=== PATIENT | male | born 1990 | race Caucasian/White ===

== ENCOUNTER → 2018-06-05 | Outpatient (REF) | payer BC ==
[~2018-06-05] MED LIST: ACET500T68 PO; DOXY-179 PO; HYDR-653 PO; IBUP800T37 PO; LAMO100T56 PO; LITH300T18 PO; LITH600C6 PO; LOR1; LORA-1455 PO; PROM-110 PO; QUET300T18 PO
[2018-06-05 17:04] LABS: PLATELET COUNT, AUTOMATED 239 K/uL (150-450)
== END ==
LOC: EDSTATUS 15:59
PROVIDERS: ATTEND Nurse Practitioner Family
DX: R10.9 Unspecified abdominal pain (principal)
CPT/HCPCS: 82040; 82150; 82247; 82310; 82374; 82435; 82565; 82947; 83690; 84075; 84132; 84155; 84295; 84450; 84460; 84520; 85025; 86677

== ENCOUNTER 2018-06-09 15:27 | Emergency (ER) | payer BC ==
--- NOTE | 2018-06-09 16:17 | ER Report ---
History and Physical Time Seen By MD: 16:17 Hx. of Stated Complaint: patient reports feeling suicidal and depressed more than usual started on saturday. recently changed medications for depression HPI/ROS CHIEF COMPLAINT: Suicidal ideation HISTORY OF PRESENT ILLNESS: This is a 27-year-old male who presents to the emergency department with suicidal ideations. The patient sees Bianca Ortega for therapy, patient has been seeing Bianca for some time now, has been trying different medications for about one year. Patient states that about one month ago they changed from Zyprexa to Geodon, 40 mg twice a day. Since then has had frequent fluctuations in his mood, mixed emotions, Saturday he reached a point where he was unable to sleep, became very anxious, later in the evening had some auditory and visual hallucinations. Very angry and agitated and anxiety over the weekend. Yesterday began having some suicidal thoughts, patient does have access to handguns and rifles. 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 The feelings keshia me worse today, he did contact his therapist, they spoke briefly, for about 15 minutes, she felt that he needed to come to the emergency department and admitted to the behavioral health unit. Patient did come to the emergency department with his partner, patient is tearful, making good eye contact and forthcoming with his current emotional state and thoughts. Patient is willing to go to the behavioral health unit voluntarily. REVIEW OF SYSTEMS: Constitutional: No fever, no chills. Eyes: No discharge. ENT: No sore throat. Cardiovascular: No chest pain, no palpitations. Respiratory: No cough, no shortness of breath. Gastrointestinal: No abdominal pain, no vomiting. Genitourinary: No hematuria. Musculoskeletal: No back pain. Skin: No rashes. Neurological: No headache. Psychological: As above. Allergies: Coded Allergies: Tricyclic Compounds (Verified Allergy, Mild, RASH , 06/09/18) Home Meds Reported Medications Gabapentin (GABAPENTIN) 300 Mg Capsule, 300 MG PO QHS, CAPSULE 06/09/18 Ziprasidone Hcl (GEODON) 40 Mg Capsule, 40 MG PO BID, CAPSULE 06/09/18 Citalopram Hydrobromide (CELEXA) 10 Mg Tablet, 20 MG PO QDAY, #10 TAB 06/09/18 [place] Carbonate (LITHIUM CARBONATE) 450 Mg Tabcr, 450 MG PO QHS 06/09/18 Trazodone Hcl (TRAZODONE HCL) 150 Mg Tablet, 150 MG PO QHS for Sleep 06/09/18 Acetaminophen (TYLENOL EXTRA STRENGTH) 500 Mg Tablet, 500 MG PO, TAB 07/03/15 Lamotrigine (LAMICTAL) 100 Mg Tablet, 150 MG PO 09/28/13 Discontinued Reported Medications Quetiapine Fumarate (SEROQUEL) 300 Mg Tablet, 300 MG PO 09/28/13 Discontinued Scripts Promethazine Hcl (PROMETHAZINE HCL) 25 Mg Tablet, 25 MG PO Q4H PRN for NAUSEA/VOMITING, #15 TAB Prov:RODRI CADET DO 07/03/15 Hydrocodone Bit/Acetaminophen (NORCO 5-325 TABLET) 1 Each Tablet, 1 EACH PO Q4H PRN for ppain or cough suppression, #15 TAB Prov:RODRI CADET DO 07/03/15 Past Medical/Surgical History The patient has a past medical and surgical history of was to him to the extraction, tonsillectomy, bipolar, depression, previous suicide attempt, rarely uses alcohol, smokes marijuana daily. Reviewed Nurses Notes: Yes Hx Smoking: No Smoking Status: Current: Every Day Smoker, Former Smoker Hx Substance Use Disorder: No Hx Alcohol Use: Yes (barely) Constitutional Vital Sign - Last 24 Hours 06/09/18 06/09/18 15:46 18:01 Temp 98.2 Pulse 110 85 Resp 16 16 B/P (MAP) 145/90 132/85 (101) Pulse Ox 95 95 O2 Delivery Room Air Room Air Physical Exam General Appearance: The patient is alert, has no immediate need for airway protection and no signs of toxicity, tearful. Eyes: Pupils equal and round no pallor or injection. ENT, Mouth: Mucous membranes are moist. Respiratory: There are no retractions, lungs are clear to auscultation. Cardiovascular: Regular rate and rhythm. Gastrointestinal: Abdomen is soft and non tender, no masses, bowel sounds normal. Neurological: Alert and oriented 4. Moving all extremities. Following all commands. No focal neuro deficits. Skin: Warm and dry, no rashes. Musculoskeletal: Neck is supple non tender. Extremities are nontender, nonswollen and have full range of motion. Psychological: Patient is tearful, making good eye contact, forthcoming with his intent, legs and hands are open, not crossed. DIFFERENTIAL DIAGNOSIS: After history and physical exam differential diagnosis was considered for suicidal ideation. Medical Decision Making Data Points Result Diagram: 06/09/18 1618 06/09/18 1618 Laboratory Hematology Test 06/09/18 15:43 06/09/18 16:18 Urine Color Yellow Urine Clarity Cloudy Urine pH 8.0 pH (4.8-9.5) Urine Specific [place] 1.019 Urine Protein Negative mg/dL (NEGATIVE) Urine Glucose (UA) Negative mg/dL (NEGATIVE) Urine Ketones 20 mg/dL (NEGATIVE) Urine Blood Negative (NEGATIVE) Urine Nitrite Negative (NEGATIVE) Urine Bilirubin Negative (NEGATIVE) Urine Urobilinogen 4.0 mg/dL (0.2-1.9) Urine Leukocyte Esterase Negative (NEGATIVE) Urine RBC None /HPF (0-2/HPF) Urine WBC 2 /HPF (0-5/HPF) Urine Squamous Epithelial Cells None /LPF (</=FEW) Urine Amorphous Crystals Moderate /HPF Urine Bacteria Negative /HPF (NONE-FEW) Urine Mucus None /HPF (NONE-FEW) Urine Opiates Screen Negative Urine Barbiturates Screen Negative Ur Tricyclic Antidepressants Screen Positive Urine Phencyclidine Screen Negative Urine Amphetamines Screen Negative Urine Benzodiazepines Screen Negative Urine Cocaine Screen Negative Urine Cannabinoids Screen Positive Red Blood Count 5.80 M/uL (4.00-5.60) Mean Corpuscular Volume 86.0 fL (80.0-96.0) Mean Corpuscular Hemoglobin 29.9 pg (26.0-33.0) Mean Corpuscular Hemoglobin Concent 34.8 g/dL (32.0-36.0) Red Cell Distribution Width 14.2 % (11.5-14.5) Mean Platelet Volume 8.3 fL (7.2-11.1) Neutrophils (%) (Auto) 73.4 % (39.4-72.5) Lymphocytes (%) (Auto) 20.3 % (17.6-49.6) Monocytes (%) (Auto) 4.6 % (4.1-12.4) Eosinophils (%) (Auto) 1.2 % (0.4-6.7) Basophils (%) (Auto) 0.5 % (0.3-1.4) Nucleated RBC Relative Count (auto) 0.0 /100WBC Neutrophils # (Auto) 7.3 K/uL (2.0-7.4) Lymphocytes # (Auto) 2.0 K/uL (1.3-3.6) Monocytes # (Auto) 0.5 K/uL (0.3-1.0) Eosinophils # (Auto) 0.1 K/uL (0.0-0.5) Basophils # (Auto) 0.0 K/uL (0.0-0.1) Nucleated RBC Absolute Count (auto) 0.00 K/uL Sodium Level 140 mmol/L (137-145) Potassium Level 3.2 mmol/L (3.5-5.0) Chloride Level 106 mmol/L (98-107) Carbon Dioxide Level 25 mmol/L (22-30) Blood Urea Nitrogen 9 mg/dl (9-21) Creatinine 0.90 mg/dl (0.66-1.25) Glomerular Filtration Rate Calc > 60.0 Random Glucose 163 mg/dl (75-110) Calcium Level 10.1 mg/dl (8.4-10.2) Magnesium Level 2.0 mg/dl (1.7-2.2) Total Bilirubin 0.5 mg/dl (0.2-1.3) Aspartate Amino Transf (AST/SGOT) 27 U/L (0-35) Alanine Aminotransferase (ALT/SGPT) 36 U/L (0-56) Alkaline Phosphatase 76 U/L (0-126) Total Protein 7.9 g/dl (6.3-8.2) Albumin 5.1 g/dl (3.5-5.0) Salicylates Level < 10 mg/L Salicylate Last Dose Date Unk Acetaminophen Level < 10 ug/ml Serum Alcohol < 10 mg/dl Chemistry Test 06/09/18 15:43 06/09/18 16:18 Urine Color Yellow Urine Clarity Cloudy Urine pH 8.0 pH (4.8-9.5) Urine Specific [place] 1.019 Urine Protein Negative mg/dL (NEGATIVE) Urine Glucose (UA) Negative mg/dL (NEGATIVE) Urine Ketones 20 mg/dL (NEGATIVE) Urine Blood Negative (NEGATIVE) Urine Nitrite Negative (NEGATIVE) Urine Bilirubin Negative (NEGATIVE) Urine Urobilinogen 4.0 mg/dL (0.2-1.9) Urine Leukocyte Esterase Negative (NEGATIVE) Urine RBC None /HPF (0-2/HPF) Urine WBC 2 /HPF (0-5/HPF) Urine Squamous Epithelial Cells None /LPF (</=FEW) Urine Amorphous Crystals Moderate /HPF Urine Bacteria Negative /HPF (NONE-FEW) Urine Mucus None /HPF (NONE-FEW) Urine Opiates Screen Negative Urine Barbiturates Screen Negative Ur Tricyclic Antidepressants Screen Positive Urine Phencyclidine Screen Negative Urine Amphetamines Screen Negative Urine Benzodiazepines Screen Negative Urine Cocaine Screen Negative Urine Cannabinoids Screen Positive White Blood Count 10.0 k/uL (4.5-11.0) Red Blood Count 5.80 M/uL (4.00-5.60) Hemoglobin 17.3 g/dL (14.0-18.0) Hematocrit 49.8 % (42.0-52.0) Mean Corpuscular Volume 86.0 fL (80.0-96.0) Mean Corpuscular Hemoglobin 29.9 pg (26.0-33.0) Mean Corpuscular Hemoglobin Concent 34.8 g/dL (32.0-36.0) Red Cell Distribution Width 14.2 % (11.5-14.5) Platelet Count 251 K/uL (150-450) Mean Platelet Volume 8.3 fL (7.2-11.1) Neutrophils (%) (Auto) 73.4 % (39.4-72.5) Lymphocytes (%) (Auto) 20.3 % (17.6-49.6) Monocytes (%) (Auto) 4.6 % (4.1-12.4) Eosinophils (%) (Auto) 1.2 % (0.4-6.7) Basophils (%) (Auto) 0.5 % (0.3-1.4) Nucleated RBC Relative Count (auto) 0.0 /100WBC Neutrophils # (Auto) 7.3 K/uL (2.0-7.4) Lymphocytes # (Auto) 2.0 K/uL (1.3-3.6) Monocytes # (Auto) 0.5 K/uL (0.3-1.0) Eosinophils # (Auto) 0.1 K/uL (0.0-0.5) Basophils # (Auto) 0.0 K/uL (0.0-0.1) Nucleated RBC Absolute Count (auto) 0.00 K/uL Glomerular Filtration Rate Calc > 60.0 Calcium Level 10.1 mg/dl (8.4-10.2) Magnesium Level 2.0 mg/dl (1.7-2.2) Total Bilirubin 0.5 mg/dl (0.2-1.3) Aspartate Amino Transf (AST/SGOT) 27 U/L (0-35) Alanine Aminotransferase (ALT/SGPT) 36 U/L (0-56) Alkaline Phosphatase 76 U/L (0-126) Total Protein 7.9 g/dl (6.3-8.2) Albumin 5.1 g/dl (3.5-5.0) Salicylates Level < 10 mg/L Salicylate Last Dose Date Unk Acetaminophen Level < 10 ug/ml Serum Alcohol < 10 mg/dl Toxicology Test 06/09/18 15:43 06/09/18 16:18 Urine Opiates Screen Negative Urine Barbiturates Screen Negative Ur Tricyclic Antidepressants Screen Positive Urine Phencyclidine Screen Negative Urine Amphetamines Screen Negative Urine Benzodiazepines Screen Negative Urine Cocaine Screen Negative Urine Cannabinoids Screen Positive Salicylates Level < 10 mg/L Salicylate Last Dose Date Unk Acetaminophen Level < 10 ug/ml Serum Alcohol < 10 mg/dl Urinalysis Test 06/09/18 15:43 Urine Color Yellow Urine Clarity Cloudy Urine pH 8.0 pH (4.8-9.5) Urine Specific [place] 1.019 Urine Protein Negative mg/dL (NEGATIVE) Urine Glucose (UA) Negative mg/dL (NEGATIVE) Urine Ketones 20 mg/dL (NEGATIVE) Urine Blood Negative (NEGATIVE) Urine Nitrite Negative (NEGATIVE) Urine Bilirubin Negative (NEGATIVE) Urine Urobilinogen 4.0 mg/dL (0.2-1.9) Urine Leukocyte Esterase Negative (NEGATIVE) Urine RBC None /HPF (0-2/HPF) Urine WBC 2 /HPF (0-5/HPF) Urine Squamous Epithelial Cells None /LPF (</=FEW) Urine Amorphous Crystals Moderate /HPF Urine Bacteria Negative /HPF (NONE-FEW) Urine Mucus None /HPF (NONE-FEW) ED Course/Re-evaluation ED Course The patient was admitted to room. A history and physical were obtained. Differential diagnoses were considered. A CBC, CMP and psych panel were obtained. A UA was collected. A toxicology screen was collected.CBC unremarkable, chemistries showing potassium 3.2, glucose 163, hemoglobin A1c was ordered, UA showing ketonuria, otherwise unremarkable, toxicology screen positive for tricyclics, and cannabis, negative serum alcohol. I did speak with Dr. Rebeca Escoto, the therapist auto parts salesperson, she is accepted the patient in the behavioral health unit for suicidal ideations. This is a voluntary admission. 06/09/2018 5:34:26 pm I did speak with Rebeca Powell, the therapist called, she is accepted the patient has behavioral health unit. Decision to Disposition Date: Jun 09, 2018 Decision to Disposition Time: 17:34 Depart Departure Latest Vital Signs Vital Signs Date Time Temp Pulse Resp B/P (MAP) Pulse Ox O2 Delivery O2 Flow Rate FiO2 06/09/18 18:01 85 16 132/85 (101) 95 Room Air 06/09/18 15:46 98.2 Impression: Primary Impression: Suicidal ideations Condition: Improved Disposition: XFER TO [facility] ROSENDA CRISTOBAL MACHINE SHOP APPRENTICE-BC Jun 09, 2018 16:17
[2018-06-09 16:24] LABS: PLATELET COUNT, AUTOMATED 251 K/uL (150-450)
[2018-06-09] MEDS ORDERED: LITC450 PO (16:37)
[2018-06-09] MEDS ORDERED: ZIPR40CA14 PO (16:37)
[2018-06-09] MEDS ORDERED: GABA-549 PO (16:37)
[2018-06-09] MEDS ORDERED: TRAZ150T8 PO (16:37)
[2018-06-09] MEDS ORDERED: CITA-155 PO (16:37)
[2018-06-09 18:01] VITALS: BP 132/85
== END 2018-06-09 18:00 ==
LOC: ER 15:49
DX: R45.851 Suicidal ideations (principal)
CPT/HCPCS: 80305; 80320; 80329; 81001; 82040; 82247; 82310; 82374; 82435; 82565; 82947; 83036; 83735; 84075; 84132; 84155; 84295; 84443; 84450; 84460; 84520; 85025; 99284

== ENCOUNTER 2018-06-09 17:55 | Inpatient (IN) | payer BC ==
[~2018-06-09] VITALS: Ht 162.6 cm; Wt 88.0 kg
[~2018-06-09 17:55] MED LIST changes: +CITA-155 PO; +GABA-549 PO; +LITC450 PO; +TRAZ150T8 PO; +ZIPR40CA14 PO
[2018-06-09] MEDS ORDERED: ACETAMINOPHEN 325 MG TAB PO PRN (18:50)
[2018-06-09 18:56] VITALS: BP 130/85
[2018-06-09] MEDS: NICOTINE POLACRILEX 2 MG GUM PO PRN (19:34)
--- NOTE | 2018-06-09 20:49 | EKG ---
FACILITY: [facility] PATIENT NAME: JOSE ESCUDERO : [id number] MR: [id number] V: [id number] EXAM DATE: ORDERING PHYSICIAN: LYNDSEY VILLAFUERTE TECHNOLOGIST: PENNY Test Reason : R/O PROLONGED QT Blood Pressure : / mmHG Vent. Rate : 063 BPM Atrial Rate : 063 BPM P-R Int : 150 ms QRS Dur : 094 ms QT Int : 426 ms P-R-T Axes : 062 063 027 degrees QTc Int : 435 ms Sinus rhythm with marked sinus arrhythmia Otherwise normal ECG No previous ECGs available Confirmed by BRIGETTE DIAZ ([id number]) on 06/09/2018 10:11:10 PM Referred By: Confirmed By:BRIGETTE DIAZ
[2018-06-09] MEDS ORDERED: CITALOPRAM HYDROBROM 20 MG TAB PO SCH (21:00)
[2018-06-09] MEDS ORDERED: LITHIUM CARBONATE 450 MG TABCR PO ONE (21:00)
[2018-06-09] MEDS ORDERED: traZODone HCL 50 MG TAB PO SCH (21:00)
[2018-06-09] MEDS ORDERED: GABAPENTIN 300 MG CAP PO SCH (21:00)
[2018-06-09] MEDS: hydrOXYzine PAMOATE 25 MG CAP PO PRN (21:17)
[2018-06-09] MEDS: lamoTRIgine 100 MG TAB PO SCH (21:18)
[2018-06-09] MEDS: ZIPRASIDONE 20 MG CAP PO SCH (21:25)
[2018-06-10 06:07] VITALS: BP 114/87
[2018-06-10] MEDS: NICOTINE POLACRILEX 2 MG GUM PO PRN ×3 (08:16→17:16)
[2018-06-10] MEDS: MULTIVITAMINS PO SCH (08:29)
[2018-06-10] MEDS: ZIPRASIDONE 20 MG CAP PO SCH (08:29)
[2018-06-10] MEDS: hydrOXYzine PAMOATE 25 MG CAP PO PRN (08:34)
[2018-06-10] MEDS: QUEtiapine FUM 25 MG TAB PO PRN (12:43)
[2018-06-10 14:25] VITALS: BP 128/90
--- NOTE | 2018-06-10 14:43 | HISTORY AND PHYSICAL ---
DATE OF ADMISSION: June 09, 2018 The patient was seen on the morning of June 10, 2018, at 9:00 a.m. for this history and physical. CHIEF COMPLAINT "On Saturday night, I was going to put a gun up to my head." HISTORY OF PRESENT ILLNESS This is the third ever inpatient psychiatric admission for this 27-year-old male who has a history of bipolar disorder and who is admitted on a voluntary basis. The patient says that he has been having mood instability with depression predominating over the last several months. He and his outpatient provider, Bianca Ortega, have been working on switching his medications. Over the past five days, he has been extremely depressed, but at the same time very agitated with racing thoughts and profound insomnia. Five nights ago, he was up all night and could not sleep. He tried taking four trazodone. He slept for two hours, then he took four more trazodone and still could not sleep. He locked himself in his bedroom, and although his fiance was there checking on him, the patient would not let the fiance in the room. He was withdrawn, shutting people out, isolating. He has been having racing thoughts and a dysphoric mood. On Saturday night, he thought maybe he heard auditory hallucinations of music and a visual hallucination of a couch waving up and down. He had suicidal ideation over these several days, and on Saturday night, he actually had his gun in his room, but did not make any suicide attempt. Yesterday, he and his fiance talked, and he knew he needed help. He called his outpatient provider, Bianca Ortega, who recommended that he come to the hospital for admission. PAST PSYCHIATRIC HISTORY The patient was in therapy during his teenage years for anger problems and for cutting. In the distant past, he was treated with Ritalin briefly for ADHD. He was hospitalized at age 18 for suicidal ideation and at that time was diagnosed with bipolar I disorder. He was hospitalized again at age 19 for a suicide attempt after he had started Prozac only the day before and then had a sudden impulsive suicide attempt by cutting his wrist. The patient currently sees Bianca Ortega for outpatient medication management. FAMILY PSYCHIATRIC HISTORY His mother had a mood disorder with depression. Maternal great-aunt had anorexia which she from. Maternal great-uncle by suicide. There is no family history for substance abuse. PAST MEDICAL HISTORY Negative. SOCIAL HISTORY He was born in [place] to parents who are still . He has one sister who is three years younger than him, to whom he is very close. She currently lives with her in [place]. He describes a good childhood and says he is close with his parents. They currently live in [place]. He was mostly raised in [place] where he graduated from high school. He did attend college both at [employer] and later at the [employer], and he studied for five years, but switched his major a number of times and does not have a bachelor's degree. He currently works at the [employer]. He describes himself as patiño and has a partner of the past five years named Joseph, to whom he is engaged. He says that they have a good relationship, and Joseph is an important support person for him. LEGAL HISTORY None. VICTIM ISSUES He denies history of physical or sexual abuse. SUBSTANCE ABUSE HISTORY He tried marijuana a couple of times in high school. For the past five years, he has smoked marijuana more consistently and currently is using marijuana on almost a daily basis. He very rarely drinks alcohol. He denies any other history of substance abuse. PHYSICAL EXAMINATION Please see the emergency room physician's report. VITAL SIGNS: Temperature 99.3, pulse 94, respiratory rate 16, blood pressure 130/85, pulse ox is 93% on room air. LABORATORY DATA TSH is normal at 1.77. Hemoglobin A1c is normal at 5.2. CBC is within normal limits. Chemistry panel shows a low potassium at 3.2, random glucose was high at 163, albumin was high at 5.1. Tox screen was positive for tricyclics, assumed due to the fact he is on trazodone. Tox screen is positive for cannabis. Serum alcohol is nil. Urinalysis showed high ketones at 20, and urobilinogen is high at 4.0. The remainder of the urinalysis is normal. MENTAL STATUS EXAMINATION He was somewhat disheveled, dressed in hospital scrubs. He had variable eye contact, mostly good, and he was tearful a number of times. Speech was normal in rate, tone, and volume. Mood and affect were both depressed. Thought process was logical and goal directed. Thought content was positive for suicidal ideation as recently as an hour before this interview. He had thoughts of thinking of ways he could kill himself while he was in the hospital. He does state that he had no intention and would inform staff should his suicidal thoughts intensify. He denies homicidal ideation, auditory hallucinations, visual hallucinations, and delusions. He is alert and fully oriented to person, place, time, and situation. Memory is intact for immediate, recent, and remote recall. Intelligence is average based on interview. Insight and judgment are good. IMPRESSION 1. Bipolar I disorder, currently mixed state. 2. Suicidal ideation. 3. Cannabis use disorder, moderate. PLAN We have admitted him to [facility], and he is being maintained on suicide precautions. He will attend all individual and group therapy sessions. I have spoken with Bianca Ortega, his outpatient provider, and we have discussed some medication changes. The patient is agreeable to this. We will discontinue Neurontin, Geodon, Celexa, and trazodone. We will increase lithium to 600. We will continue Lamictal 300 mg daily. We will initiate Seroquel 200 mg at bedtime to help with mood stability and with sleep. Estimated length of stay will be three to five days. MTDD
[2018-06-10] MEDS: MAG HYD/AL HYD/SIMETH 30ML UDC PO PRN ×2 (16:46→21:29)
[2018-06-10] MEDS: lamoTRIgine 100 MG TAB PO SCH (21:20)
[2018-06-10] MEDS: LITHIUM CARBONATE 300 MG CAP PO SCH (21:22)
[2018-06-10] MEDS: QUEtiapine FUM 100 MG TAB PO SCH (21:22)
[2018-06-10 22:06] VITALS: BP 115/85
[2018-06-11 06:12] VITALS: BP 117/69
[2018-06-11] MEDS: QUEtiapine FUM 25 MG TAB PO PRN (07:52)
[2018-06-11] MEDS: NICOTINE POLACRILEX 2 MG GUM PO PRN ×4 (07:52→19:06)
[2018-06-11] MEDS: MULTIVITAMINS PO SCH (07:52)
[2018-06-11] MEDS: MAG HYD/AL HYD/SIMETH 30ML UDC PO PRN ×2 (07:53→19:06)
[2018-06-11] MEDS ORDERED: FAMOTIDINE 20 MG TAB PO SCH (09:00)
[2018-06-11] MEDS: FAMOTIDINE 20 MG TAB PO SCH (09:04)
--- NOTE | 2018-06-11 12:08 | BHS Progress Note ---
BHS - Subjective Progress Notes Subjective Pt seen in treatment team with his parents and his negar attending. Pt doing "medium better" today. He did take a prn of seroquel 50 mg this am for anxiety. Slept better last night. He is noticing some vague physical side effects today, likely due to pretty significant med changes we made yesterday-- chills, a little sweaty. But VSS. C/o heartburn so famotidine added. Educated pt and family about his current medication regimen and rationale for each med. Pt denies SI. Family all shared about how significantly depressed and regressed he was the weekend before admission; we discussed his two handguns which are currently locked up at parents' home in [place]. Pt has called parents a total of 3 times now over the years when his mood has gotten unstable and asked them to secure his weapons-- so positive feedback given for him being pro-active regarding his safety. We also discussed negative impact of cannabis on mental health and our recommendation for complete abstinence from drugs or alcohol. Pt will work today on negative thinking, CBT skills. Pt and family all watched an educational video together about bipolar disorder after our meeting. For now will continue current meds other than increase lamictal to 300 mg which is what his outpatient dose was (he had mistakenly told us 200 mg). Will not add wellbutrin at this time, I want to see how he does with current meds-- he may not need it-- need to see extent of depression tomorrow and Saturday.. Suicidal Ideation: Resolving Homicidal Ideation: None BHS - Objective Physical Exam Vital Signs Vital Signs 06/11/18 06:12 Temp 98.2 Pulse 69 Resp 15 B/P (MAP) 117/69 (85) Pulse Ox 93 O2 Delivery Room Air Muscle Strength and Tone: WNL Gait and Station: Steady BHS Medications Reviewed: Side Effects, Benefits of Medication, Risks Allergies Reviewed: Yes Mental Status Exam General Appearance: Casual, Well Groomed, Good Eye Contact, Cooperative, Polite, Good Interaction, Tearful, Psychomotor Retardation Speech: Clear, Spontaneous, Normal Rate, Normal Rhythm, Normal Volume (low volume), Delayed Mood: Dysthmic/Depressed Affect: Calm, Sad Thought Process: Organized, Logical, Goal Directed Thought Content: Suicidal Ideation (none today but positive as recently as 24 hours ago); No Homicidal Ideation, No Delusions, No Auditory Halllucinations, No Visual Hallucinations, No Thought Broadcasting, No Ideas of Reference, No Obsessions, No Compulsions, No Other Sensorium: Clear Cognition: Alert & Oriented-Person, Alert & Oriented-Place, Alert & Oriented- Time, Gnctp-Veatgwfe-Nvodvfhdz Memory: Immediate, Recent, Remote Intelligence: Average Insight Judgment: Fair [facility] Assessment and Plan [id number] Encounter Date: Jun 11, 2018 [id number] Encounter Time: 09:00 [facility] Plan: Admit to Unit, Necessary Precautions, Individual/Group Therapy, Admin/Titrate Meds, Educate Patient Tobacco Medications: Started Multpiple Antipsychotics Used: No Problems: (1) Bipolar disorder, curr episode mixed, severe, w/o psychotic features (2) Cannabis use disorder, moderate, dependence LYNDSEY VILLAFUERTE MD Jun 11, 2018 12:08
[2018-06-11 14:39] VITALS: BP 112/70
[2018-06-11] MEDS ORDERED: LAMO200T45 PO (19:15)
[2018-06-11] MEDS ORDERED: IBUP-56 PO (19:16)
[2018-06-11] MEDS: QUEtiapine FUM 100 MG TAB PO SCH (20:56)
[2018-06-11] MEDS: LITHIUM CARBONATE 300 MG CAP PO SCH (20:58)
[2018-06-11] MEDS ORDERED: lamoTRIgine 100 MG TAB PO SCH (21:00)
[2018-06-11 21:13] VITALS: BP 124/83
[2018-06-12] MEDS: QUEtiapine FUM 25 MG TAB PO PRN (03:23)
[2018-06-12 04:36] VITALS: BP 110/90
[2018-06-12] MEDS: FAMOTIDINE 20 MG TAB PO SCH (08:09)
[2018-06-12] MEDS: MULTIVITAMINS PO SCH (08:09)
[2018-06-12] MEDS: NICOTINE POLACRILEX 2 MG GUM PO PRN ×4 (08:31→14:18)
[2018-06-12 11:12] VITALS: BP 114/85
[2018-06-12] MEDS ORDERED: LITH600C6 PO (13:39)
[2018-06-12] MEDS ORDERED: LAMO200T46 PO (13:40)
[2018-06-12] MEDS ORDERED: NICO-306 BC (13:42)
[2018-06-12] MEDS ORDERED: QUET300T18 PO (13:44)
--- NOTE | 2018-06-12 14:55 | BHS Discharge Summary ---
[facility] Discharge Summary Ityx-id-Vnux Encounter Date: Jun 12, 2018 Sqox-we-Zdaj Encounter Time: 09:30 Reason-Hosp/Final Diag (DSM-V): (1) Bipolar disorder, curr episode mixed, severe, w/o psychotic features Status: Chronic Hospital Course & Plan: HISTORY OF PRESENT ILLNESS This is the third ever inpatient psychiatric admission for this 27-year-old male who has a history of bipolar disorder and who is admitted on a voluntary basis. The patient says that he has been having mood instability with depression predominating over the last several months. He and his outpatient provider, Bianca Ortega, have been working on switching his medications. Over the past five days, he has been extremely depressed, but at the same time very agitated with racing thoughts and profound insomnia. Five nights ago, he was up all night and could not sleep. He tried taking four trazodone. He slept for two hours, then he took four more trazodone and still could not sleep. He locked himself in his bedroom, and although his fiance was there checking on him, the patient would not let the fiance in the room. He was withdrawn, shutting people out, isolating. He has been having racing thoughts and a dysphoric mood. On Saturday night, he thought maybe he heard auditory hallucinations of music and a visual hallucination of a couch waving up and down. He had suicidal ideation over these several days, and on Saturday night, he actually had his gun in his room, but did not make any suicide attempt. Yesterday, he and his fiance talked, and he knew he needed help. He called his outpatient provider, Bianca Ortega, who recommended that he come to the hospital for admission. HOSPITAL COURSE Pt was admitted to [facility] and maintained on suicide precautions. He was cooperative and played an active role in his treatment at all times. He did have SI the morning after admission, thinking about ways he could kill himself while in the hospital-- but never any acting out behaviors. We reviewed his meds and decided to make some changes to get away from the antidepressants (celexa and trazodone) which may have been DE-stabilizing his mood. He wanted to stop the neurontin as well since he didn't think it was helping. We changed from geodon to a more sedating neuroleptic, seroquel, which he had found helpful in the past. He tolerated medication changes well, and remained free of SI for the rest of his hospital stay. By day of discharge he was feeling much better and had slept well the night before. He will follow up with Bianca Ortega and also with a therapist at [facility]. (2) Cannabis use disorder, moderate, dependence Physical Exam Latest Vital Signs Vital Signs 06/12/18 06/12/18 04:36 11:12 Temp 99.4 Pulse 98 Resp 16 B/P (MAP) 114/85 (95) Pulse Ox 98 O2 Delivery Room Air Mental Status Exam General Appearance: Casual, Well Groomed, Good Eye Contact, Cooperative, Polite, Good Interaction Speech: Clear, Spontaneous, Normal Rate, Normal Rhythm, Normal Volume, Normal Tone Mood: Euthymic Affect: Full and Appropriate Thought Process: Organized, Logical, Goal Directed Thought Content: No Suicidal Ideation, No Homicidal Ideation, No Delusions, No Auditory Halllucinations, No Visual Hallucinations, No Thought Broadcasting, No Ideas of Reference, No Obsessions, No Compulsions, No Other Sensorium: Clear Cognition: Alert & Oriented-Person, Alert & Oriented-Place, Alert & Oriented- Time, Eiqal-Jagghfgd-Hprhwvsnw Memory: Immediate, Recent, Remote Intelligence: Average Insight Judgment: Fair Departure Item Value Date Time White Blood Count 10.0 k/uL 06/09/18 1618 Red Blood Count 5.80 M/uL H 06/09/188 Hemoglobin 17.3 g/dL 06/09/18 1618 Hematocrit 49.8 % 06/09/188 Mean Corpuscular Volume 86.0 fL 06/09/18 1618 Mean Corpuscular Hemoglobin 29.9 pg 06/09/188 Mean Corpuscular Hemoglobin Concent 34.8 g/dL 06/09/18 1618 Red Cell Distribution Width 14.2 % 06/09/18 1618 Platelet Count 251 K/uL 06/09/18 1618 Sodium Level 140 mmol/L 06/09/18 1618 Potassium Level 3.2 mmol/L L 06/09/18 1618 Chloride Level 106 mmol/L 06/09/18 1618 Carbon Dioxide Level 25 mmol/L 06/09/18 1618 Blood Urea Nitrogen 9 mg/dl 06/09/18 1618 Creatinine 0.90 mg/dl 06/09/18 1618 Glomerular Filtration Rate Calc > 60.0 06/09/18 1618 Random Glucose 163 mg/dl H 06/09/18 1618 Hemoglobin A1c 5.2 % 06/09/18 1618 Calcium Level 10.1 mg/dl 06/09/18 1618 Magnesium Level 2.0 mg/dl 06/09/18 1618 Total Bilirubin 0.5 mg/dl 06/09/18 1618 Aspartate Amino Transf (AST/SGOT) 27 U/L 06/09/18 1618 Alanine Aminotransferase (ALT/SGPT) 36 U/L 06/09/18 1618 Alkaline Phosphatase 76 U/L 06/09/18 1618 Total Protein 7.9 g/dl 06/09/18 1618 Albumin 5.1 g/dl H 06/09/18 1618 Urine Color Yellow 06/09/18 1543 Urine Clarity Cloudy 06/09/18 1543 Urine pH 8.0 pH 06/09/18 1543 Urine Specific Felda 1.019 06/09/18 1543 Urine Protein Negative mg/dL 06/09/18 1543 Urine Glucose (UA) Negative mg/dL 06/09/18 1543 Urine Ketones 20 mg/dL H 06/09/18 1543 Urine Blood Negative 06/09/18 1543 Urine Nitrite Negative 06/09/18 1543 Urine Bilirubin Negative 06/09/18 1543 Urine Urobilinogen 4.0 mg/dL H 06/09/18 1543 Urine Leukocyte Esterase Negative 06/09/18 1543 Urine RBC None /HPF 06/09/18 1543 Urine WBC 2 /HPF 06/09/18 1543 Urine Squamous Epithelial Cells None /LPF 06/09/18 1543 Urine Amorphous Crystals Moderate /HPF 06/09/18 1543 Urine Bacteria Negative /HPF 06/09/18 1543 Urine Mucus None /HPF 06/09/18 1543 Salicylates Level < 10 mg/L 06/09/18 1618 Salicylate Last Dose Date Unk 06/09/18 1618 Urine Opiates Screen Negative 06/09/18 1543 Acetaminophen Level < 10 ug/ml 06/09/18 1618 Urine Barbiturates Screen Negative 06/09/18 1543 Ur Tricyclic Antidepressants Screen Positive 06/09/18 1543 Urine Phencyclidine Screen Negative 06/09/18 1543 Urine Amphetamines Screen Negative 06/09/18 1543 Urine Benzodiazepines Screen Negative 06/09/18 1543 [place] Level 0.5 mmol/L L 06/10/18 0835 Urine Cocaine Screen Negative 06/09/18 1543 Urine Cannabinoids Screen Positive 06/09/18 1543 Serum Alcohol < 10 mg/dl 06/09/18 1618 EKG EXAM DATE: ORDERING PHYSICIAN: LYNDSEY VILLAFUERTE TECHNOLOGIST: PENNY Test Reason : R/O PROLONGED QT Blood Pressure : / mmHG Vent. Rate : 063 BPM Atrial Rate : 063 BPM P-R Int : 150 ms QRS Dur : 094 ms QT Int : 426 ms P-R-T Axes : 062 063 027 degrees QTc Int : 435 ms Sinus rhythm with marked sinus arrhythmia Otherwise normal ECG No previous ECGs available Confirmed by BRIGETTE DIAZ ([id number]) on 06/09/2018 10:11:10 PM Referred By: Confirmed By:BRIGETTE DIAZ Condition: Improved Discharge to: Home Discharge Instructions Home Meds Reported Medications Quetiapine Fumarate (SEROQUEL) 300 Mg Tablet, 300 MG PO QHS 06/12/18 Nicotine Polacrilex (NICOTINE GUM) 2 Mg Gum, 2 MG BC Q1-2H, GUM 06/12/18 Lamotrigine (LAMICTAL) 200 Mg Tablet, 300 MG PO QHS 06/12/18 [place] Carbonate (LITHIUM CARBONATE) 600 Mg Capsule, 600 MG PO QHS, CAPSULE 06/12/18 Discontinued Reported Medications Ibuprofen (IBUPROFEN) 200 Mg Tablet, 2 TAB PO Q6H PRN for PAIN/HEADACHE, TAB 06/11/18 Lamotrigine (LAMOTRIGINE) 200 Mg Tablet, 300 MG PO QDAY 06/11/18 Ziprasidone Hcl (GEODON) 40 Mg Capsule, 40 MG PO BID, CAPSULE 06/09/18 Citalopram Hydrobromide (CELEXA) 10 Mg Tablet, 20 MG PO QDAY, #10 TAB 06/09/18 [place] Carbonate (LITHIUM CARBONATE) 450 Mg Tabcr, 450 MG PO QHS 06/09/18 Trazodone Hcl (TRAZODONE HCL) 150 Mg Tablet, 150-300 MG PO QHS for Sleep 06/09/18 Acetaminophen (TYLENOL EXTRA STRENGTH) 500 Mg Tablet, 500 MG PO, TAB 07/03/15 Gabapentin (GABAPENTIN) 300 Mg Capsule, 300 MG PO QHS, CAPSULE 06/09/18 Lamotrigine (LAMICTAL) 100 Mg Tablet, 150 MG PO 09/28/13 Quetiapine Fumarate (SEROQUEL) 300 Mg Tablet, 300 MG PO 09/28/13 Discontinued Scripts Promethazine Hcl (PROMETHAZINE HCL) 25 Mg Tablet, 25 MG PO Q4H PRN for NAUSEA/VOMITING, #15 TAB Prov:RODRI CADET DO 07/03/15 Hydrocodone Bit/Acetaminophen (NORCO 5-325 TABLET) 1 Each Tablet, 1 EACH PO Q4H PRN for ppain or cough suppression, #15 TAB Prov:RODRI CADET DO 07/03/15 Multpiple Antipsychotics Used: No Diet: Regular Activity: As Tolerated Special Instructions: Instructions: Discharge home today. Take medications as prescribed. Remain free from illicit drug use. Utilize coping skills to address life stressors. Follow up with outpatient provider and therapist for medications and therapy management. Call Crisis line at [phone] or return to ED if symptoms return. LYNDSEY VILLAFUERTE MD Jun 12, 2018 14:55
== END 2018-06-12 15:38 | disposition home or self-care (01) | DRG 885 ==
LOC: BHS 17:55
PROVIDERS: ADMIT Psychiatry & Neurology Psychiatry; ATTEND Psychiatry & Neurology Psychiatry
DX: F31.63 Bipolar disorder, current episode mixed, severe, without psychotic features (principal); R45.851 Suicidal ideations; F12.20 Cannabis dependence, uncomplicated; G47.00 Insomnia, unspecified; Z81.8 Family history of other mental and behavioral disorders; Z91.5 Personal history of self-harm
CPT/HCPCS: 36415; 80178; 93005; Q0177